=== PATIENT | female | born 2005 ===

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

== ENCOUNTER 2023-03-15 10:15 | Emergency (ER) | payer BC ==
[~2023-03-15] VITALS: Ht 170.2 cm; Wt 61.2 kg
[2023-03-15] MEDS ORDERED: PRED10 PO (10:43)
[2023-03-15 11:20] VITALS: BP 122/79
== END 2023-03-15 11:20 | disposition home or self-care (01) ==
LOC: ER 10:15
DX: L50.9 Urticaria, unspecified (principal)
CPT/HCPCS: 99283; J7512

== ENCOUNTER → 2025-02-27 | Outpatient (CLI) | payer BC ==
[~2025-02-27] MED LIST: PRED10 PO
== END ==
LOC: LAB 14:33 → LAB SHORT 14:33
DX: J03.90 Acute tonsillitis, unspecified (principal)
CPT/HCPCS: 87081